=== PATIENT | female | born 2000 | race Caucasian/White ===

== ENCOUNTER 2023-12-01 08:14 | Outpatient (CLI) | payer OTHER, SELFPAY ==
--- NOTE | 2023-12-10 22:01 | WPDSLEEPSTUD ---
Sleep Study Date of Study: 12/01/23 Ordering Provider: CHARLES Garcia Interpreting Physician: Cassandra Quintanilla MD Sleep Study Type: Polysomnogram Height: 1.78 m Weight: 130.635 kg Body Mass Index: 41.3 Neck Circumference (inches): 17 [place]: 11 Reason for Sleep Study Hypersomnolence Sleep History Katya Dorado is a 23-year-old woman with difficulty sleeping at night, often waking at 3:00 a.m. and unable to return to sleep. She has taken trazodone for insomnia. She snores on occasion. She is tired during the day, does not nap. She has poor nights of sleep 1 or 2 times per week. She rarely awakens from sleep short of breath. She occasionally wakes at night with heartburn, belching or coughing.??She occasionally snores, occasionally snores loudly enough that others complain. She frequently has trouble sleeping when she has a cold. She rarely wakes up gasping for breath during the night. She never has breathing problems at night reported to her by others. She occasionally sweats excessively at night. She rarely notices her heart pounding or beating irregularly during the night. She rarely falls asleep during the day. She never falls asleep involuntarily, never falls asleep while driving. She never experiences loss of muscle tone with strong emotion. She never feels paralyzed on waking or falling asleep. She rarely experiences vivid dreams upon waking or falling asleep. She never feels afraid of going to sleep. She never has nightmares. She occasionally recalls her dreams. She frequent has thoughts racing through her mind. She rarely feels sad or depressed. She frequently feels anxiety. She rarely notices parts of her body jerk. She never kicks during the night. She never feels crawling or aching feelings in her legs. She never feels leg pain at night. She never has morning jaw pain, and never grinds her teeth at night. She never feels bothered by pain during the day, is never awakened by pain during the night. She never wakes up feeling stiff in the morning, rarely wakes feeling sore or achy in the morning. She rarely awakens with pain in her neck, spine, or joints. She exercises most days of the week. Normal bedtime is between 10:00 p.m. and 11:00 p.m., falling asleep within 30 minutes, waking between 1 and 4 times at night. These awakenings occur between 3:00 a.m. and 5:00 a.m., and she often cannot return to sleep. Sometimes, she is able to return to sleep within a few minutes. She wakes between 6:30 a.m. and 8:00 a.m.. She reports getting between 6 and 8 hours of sleep per night. On weekends, her schedule shows that she goes to bed between 11:00 p.m. and 1:00 a.m., and she wakes between 8:00 a.m. and 10:00 a.m.. She does not take naps in the afternoon or evening. A short nap lasting 10-15 minutes is not refreshing. She is usually drowsy for 1 hour after waking. She feels better in the evening compared to the afternoons. Habits:??Tobacco: formally vaped; never smoked tobacco Caffeine: 1 soda and 1 coffee per day. Alcohol: 2-3 beverages per week Recreational substances: none PMFSH Past Medical History Medical History Allergies Anxiety BMI 40.0-44.9, adult GERD (gastroesophageal reflux disease) Hypothyroid Slipped capital femoral epiphysis 3 surgeries [id number] Surgical History Surgical History H/O wisdom tooth extraction (~2021) Family History Family History Sibling Asthma Depression Anxiety Grandparent Bladder cancer Anal cancer Cerebrovascular accident Father Diabetes mellitus Hypertension Cerebrovascular accident Depression Anxiety Mother Anxiety Depression Cerebrovascular accident Social History Social History Smoking status: Former smoker (vaping quit
[2023-12-10 22:10] VITALS: BMI 41.3
== END 2023-12-02 07:02 | disposition home or self-care (01) ==
LOC: ANHCSM 08:14
PROVIDERS: PCP Nurse Practitioner Family; Visit Provider Physician Assistant
DX: G47.10 Hypersomnia, unspecified (principal)
CPT/HCPCS: 95810

== ENCOUNTER 2024-05-13 17:10 | Outpatient (CLI) | payer OTHER, SELFPAY ==
--- NOTE | ~2024-05-13 | US_ITS ---
EXAMINATION: US thyroid DATE: 05/13/2024 18:07 INDICATION: Goiter. Julee's thyroiditis. TECHNIQUE: Multiple ultrasound images of the thyroid were obtained. COMPARISON: None. FINDINGS: The right thyroid lobe measures 5.7 x 2.2 x 1.9 cm. The left thyroid lobe measures 6.2 x 2.5 x 2.9 c m. The thyroid demonstrates heterogeneous hypoechogenicity and increased vascularity. No discrete no dule. IMPRESSION: 1. Heterogeneous, hypervascular thyroid, consistent with chronic lymphocytic (Julee's) thyroiditi s. Reviewed, dictated and finalized at location E. IMPRESSION: 1. Heterogeneous, hypervascular thyroid, consistent with chronic lymphocytic (H ashimoto's) thyroiditis.
== END 2024-05-13 17:11 | disposition home or self-care (01) ==
PROVIDERS: PCP Nurse Practitioner Family; Visit Provider Internal Medicine
DX: E03.9 Hypothyroidism, unspecified (principal); E04.9 Nontoxic goiter, unspecified
CPT/HCPCS: 76536